=== PATIENT | male | born 1955 | race Caucasian/White ===

== ENCOUNTER → 2016-10-05 | Outpatient (CLI) | payer BC, OTHER ==
--- NOTE | 2016-10-08 07:07 | SLEEPCENT ---
DATE OF PROCEDURE: 10/05/2016 ORDERED BY: Jennie Barahona Nocturnal polysomnography was performed for evaluation of sleep apnea syndrome symptoms in this patient with a history of excessive somnolence and comorbidity of hypertension. 7 hours and 38 minutes of data were reviewed. There were 279 minutes of sleep identified. Sleep latency was prolonged at 17 minutes. Rapid eye movement (REM) latency was prolonged at 114 minutes. Sleep architecture showed severe fragmentation until interventions were made. Overall sleep efficiency was 61%. The patient's electrocardiogram (EKG) showed a sinus rhythm with an average heart rate of 54 beats per minute. Electroencephalogram (EEG) showed reasonably normal waveforms for awake and sleep. There were 136 respiratory events identified of 10 seconds in duration or greater for an apnea-hypopnea index of 29.2. Having clearly established the presence of obstructive sleep apnea syndrome early in the study, testing was stopped shortly after midnight for the application of pressure therapy. The patient was fit with a ResMed Quattro full face mask of small size and 4 cm of water pressure were applied to the circuit and the lights were extinguished. Pressure titration proceeded over the remaining portion of the study to an optimal pressure of +8, with which the patient slept through REM without respiratory event or oxygen desaturation. Significant limb activity was appreciated early in the study; however, arousals from limb activity were significantly less late in the test. Limb movement arousal index was borderline at 6. IMPRESSION: Obstructive sleep apnea syndrome (G47.33), apnea-hypopnea index 29.2. RECOMMENDATION: Nightly use of pressure therapy at 8 cm of water.
== END ==
LOC: M SLEEP 19:26
PROVIDERS: ATTEND Nurse Practitioner Adult Health
DX: G47.30 Sleep apnea, unspecified (principal)

== ENCOUNTER → 2017-01-18 | Outpatient (REF) | payer OTHER, BC ==
[2017-01-18 13:52] LABS: BASO % 0.4 % (0.0-1.0); EOS # 0.3 K/mm3 (0.0-0.50); EOS % 5.3 % (0.0-3.0); LYMPH # 1.8 K/mm3 (1.5-4.5); LYMPH % 28.9 % (24.0-44.0); MEAN CORPUSCULAR HEMOGLOBIN 31.9 pg (27.0-33.0); MEAN CORPUSCULAR HGB CONC 33.9 g/dl (32.0-36.5); MEAN CORPUSCULAR VOLUME 94.3 fl (80.0-96.0); MONO # 0.5 K/mm3 (0.0-0.8); MONO % 8.5 % (0.0-5.0); NEUTROPHILS # 3.3 K/mm3 (1.8-7.7); NEUTROPHILS % 54.6 % (36.0-66.0); RED CELL DISTRIBUTION WIDTH 13.4 % (11.5-14.5); WHITE BLOOD COUNT 6.1 K/mm3 (4.0-10.0)
[2017-01-18 13:58] LABS: ALBUMIN 3.7 GM/DL (3.2-5.2); ALBUMIN/GLOBULIN RATIO 1.16 (1.00-1.93); ALKALINE PHOSPHATASE 49 U/L (45-117); ALT/SGPT 48 U/L (12-78); ANION GAP 7 MEQ/L (8-16); AST/SGOT 26 U/L (15-37); BILIRUBIN,TOTAL 0.9 MG/DL (0.2-1.0); BLOOD UREA NITROGEN 19 MG/DL (7-18); CALCIUM LEVEL 9.1 MG/DL (8.8-10.2); CARBON DIOXIDE LEVEL 27 MEQ/L (21-32); CHLORIDE LEVEL 105 MEQ/L (98-107); CHOLESTEROL LEVEL 187 MG/DL (<200); CREATININE FOR GFR 0.86 MG/DL (0.70-1.30); GLOMERULAR FILTRATION RATE > 60.0 (>49); GLUCOSE, FASTING 90 MG/DL (80-110); POTASSIUM SERUM 3.9 MEQ/L (3.5-5.1); SODIUM LEVEL 139 MEQ/L (136-145); TOTAL PROTEIN 6.9 GM/DL (6.4-8.2); TRIGLYCERIDES LEVEL 173 MG/DL (<150)
== END ==
LOC: M LABDRAW1 13:11
PROVIDERS: ATTEND Physician Assistant Medical
DX: I10 Essential (primary) hypertension (principal)

== ENCOUNTER → 2017-11-14 | Outpatient (CLI) | payer BC, OTHER ==
[2017-11-14 13:22] LABS: HEMATOCRIT 45.8 % (42.0-52.0); HEMOGLOBIN 15.5 g/dl (14.0-18.0); MEAN CORPUSCULAR HGB CONC 33.8 g/dl (32.0-36.5); MEAN CORPUSCULAR VOLUME 88.8 fl (80.0-96.0); PLATELET COUNT, AUTOMATED 292 10^3/uL (150-450); RED BLOOD COUNT 5.16 10^6/uL (4.30-6.10); RED CELL DISTRIBUTION WIDTH 13.8 % (11.5-14.5)
[2017-11-14 14:01] LABS: ALBUMIN 3.9 GM/DL (3.2-5.2); ALBUMIN/GLOBULIN RATIO 1.05 (1.00-1.93); ALKALINE PHOSPHATASE 52 U/L (45-117); ALT/SGPT 50 U/L (12-78); ANION GAP 8 MEQ/L (8-16); AST/SGOT 26 U/L (7-37); BILIRUBIN,TOTAL 0.8 MG/DL (0.2-1.0); BLOOD UREA NITROGEN 20 MG/DL (7-18); CALCIUM LEVEL 9.5 MG/DL (8.8-10.2); CARBON DIOXIDE LEVEL 27 MEQ/L (21-32); CHLORIDE LEVEL 105 MEQ/L (98-107); CHOLESTEROL LEVEL 184 MG/DL (<200); CHOLESTEROL RISK RATIO 4.487 (<5); CREATININE FOR GFR 0.91 MG/DL (0.70-1.30); GLOMERULAR FILTRATION RATE > 60.0 (>49); GLUCOSE, FASTING 84 MG/DL (70-100); HDL CHOLESTEROL 41 MG/DL (>40); LDL CHOLESTEROL 116.6 MG/DL (<100); NON-HDL-C 143 MG/DL; POTASSIUM SERUM 4.1 MEQ/L (3.5-5.1); PROSTATIC SPECIFIC AG MONITOR < 0.01 NG/ML (< 4.0); SODIUM LEVEL 140 MEQ/L (136-145); TOTAL PROTEIN 7.6 GM/DL (6.4-8.2); TRIGLYCERIDES LEVEL 132 MG/DL (<150)
[2017-11-14 14:16] LABS: ESTIMATED AVERAGE GLUCOSE 137 MG/DL (60-110); HEMOGLOBIN A1c 6.4 %
[2017-11-14 14:48] LABS: TESTOSTERONE 358 NG/DL (241-827)
== END ==
LOC: M LAB 12:11
DX: R91.8 Other nonspecific abnormal finding of lung field (principal); I10 Essential (primary) hypertension; E03.9 Hypothyroidism, unspecified
CPT/HCPCS: 71046

== ENCOUNTER → 2020-11-11 | Outpatient (CLI) | payer BC, OTHER ==
[2020-11-11 12:03] LABS: HEMATOCRIT 48.5 % (42.0-52.0); HEMOGLOBIN 16.1 g/dl (13.5-17.5); MEAN CORPUSCULAR HEMOGLOBIN 30.3 pg (27.0-33.0); MEAN CORPUSCULAR HGB CONC 33.2 g/dl (32.0-36.5); MEAN CORPUSCULAR VOLUME 91.2 fl (80.0-96.0); PLATELET COUNT, AUTOMATED 287 10^3/uL (150-450); RED BLOOD COUNT 5.32 10^6/uL (4.30-6.10); WHITE BLOOD COUNT 4.9 10^3/uL (4.0-10.0)
[2020-11-11 12:32] LABS: HEMOGLOBIN A1c 5.8 %
[2020-11-11 12:49] LABS: ALBUMIN 3.9 GM/DL (3.2-5.2); ALT/SGPT 55 U/L (12-78); BILIRUBIN,TOTAL 0.9 MG/DL (0.2-1.0); BLOOD UREA NITROGEN 22 MG/DL (7-18); CALCIUM LEVEL 10.2 MG/DL (8.8-10.2); CARBON DIOXIDE LEVEL 29 MEQ/L (21-32); CHLORIDE LEVEL 106 MEQ/L (98-107); CHOLESTEROL LEVEL 190 MG/DL (<200); CHOLESTEROL RISK RATIO 4.523 (<5); CREATININE FOR GFR 0.93 MG/DL (0.70-1.30); GLOMERULAR FILTRATION RATE > 60.0 (>49); GLUCOSE, FASTING 106 MG/DL (70-100); HDL CHOLESTEROL 42 MG/DL (>40); LDL CHOLESTEROL 120 MG/DL (<100); NON-HDL-C 148 MG/DL; POTASSIUM SERUM 3.9 MEQ/L (3.5-5.1); SODIUM LEVEL 138 MEQ/L (136-145); TESTOSTERONE 491 NG/DL (241-827); TOTAL 25(OH) VITAMIN D 37.4 NG/ML (30.0-100.0); TOTAL PROTEIN 7.7 GM/DL (6.4-8.2); TRIGLYCERIDES LEVEL 140 MG/DL (<150)
== END ==
LOC: M WUC 09:20
PROVIDERS: ATTEND Family Medicine
DX: E03.9 Hypothyroidism, unspecified (principal); R53.83 Other fatigue; I10 Essential (primary) hypertension
CPT/HCPCS: 36415; 80053; 80061; 82306; 83036; 84403; 84443; 85027; G0103

== ENCOUNTER → 2021-08-17 | Outpatient (CLI) | payer MEDICARE, BC, OTHER ==
[~2021-08-17] MED LIST: ASPI81TA26 PO; ATEN50TA2 PO; CHLO125TA PO; THERTAB52 PO
== END ==
LOC: M LABSMTC 10:04
PROVIDERS: ATTEND Anesthesiology
DX: Z01.812 Encounter for preprocedural laboratory examination (principal); Z20.822 Contact with and (suspected) exposure to COVID-19

== ENCOUNTER 2021-08-21 08:56 | Day surgery (SDC) | payer MEDICARE, BC, OTHER ==
[~2021-08-21] VITALS: Ht 172.7 cm; Wt 96.2 kg
[~2021-08-21 08:56] MED LIST changes: +NS 1,000 ML IV ONE
--- OUTSIDE RECORDS SUMMARY | 2021-08-21 09:02 | CCD | Continuity of Care Document ---
Author Author Erik SAPP Organization Unknown Address [address] [place] [id number] Phone [phone] Care Team Providers Care Ticket Attendant Name Role Phone Juan Manuel Begum M.D. AUTM [phone] Problems Active Problems Provider Date Screening for malignant neoplasm of colon Nicolás zaragoza M.D. Onset: 06/25/2021 Social History Type Date Description Comments Sex Unknown ETOH Use Denies alcohol use Tobacco Use Start: Unknown Patient has never smoked Allergies and adverse reactions Description No Known Drug Allergies Medications Active Medications SIG Qnty Indications Ordering Provide r Date Suprep Bowel Prep Kit 17.5-3.13-1.6GM/177ML Solution use as directed 354ml Nicolás Sapp M.D. 06/25/2021 Atenolol 50mg Tablets Take One Tablet By Mouth Every Day Unknown Chlorthalidone 25mg Tablets Take One Half Tablet By Mouth Once Daily Unknown Aspirin Adult Low Dose 81mg Tablets DR Unknown Immunizations Description No Information Available Vital Signs Date Vital Result Comment 06/25/2021 10:54am Height 68 inches 5'8" Weight 211.00 lb BP Systolic 130 mmHg BP Diastolic 81 mmHg Heart Rate 65 /min BMI (Body Mass Index) 32.1 kg/m2 Weight 95.710 kg Body Temperature 97.2 F Results Description No Information Available Procedures Date Code Description Status 06/25/2021 25590 Office/Outpatient New Low MDM 30 -44 Minutes Completed Medical Devices Description No Information Available Encounters Type Date Location Provider Dx Diagnosis Office Visit 06/25/2021 10:00a Main Office Nicolás Sapp M.D. Z 86.010 Personal history of colonic polyps Assessments Date Code Description Provider 06/25/2021 Z86.010 History of adenomatous polyp of colon Nicolás Sapp M.D. Plan of Treatment Future Appointment(s):* 08/10/2021 8:30 am - [facility] at Main Office * 08/21/2021 11:00 am - Nicolás Sapp M.D. at Main Office 06/25/2021 - Nicolás Sapp M.D.* Z86.010 History of adenomatous polyp of colon* Comments:* 65 yo wm who presents for a colonoscopy due to a h/o colonic polyps. Last scope was in 2015. No c/o abdominal pain, weight loss, change in bowel habits, or rectal bleeding. No family h/o colon cancer. No h/o chest pain, or sob.Plan:1.Schedule patient for Colonoscopy. 2. Informed consent given.3. Advised to stop asa, plavix,and anticoagulation 3 to 7 days prior to the procedures. Functional Status Description No Information Available Mental Status Description No Information Available Referrals Description No Information Available
--- OUTSIDE RECORDS SUMMARY | 2021-08-21 09:02 | CCD ---
Author Author [facility] Organization [facility] Address Unknown Phone Unavailable Care Team Providers Care Aircraft Manager Name Role Phone Moctezuma, Janet ASSEMBLY LINE SUPERVISOR Unavailable Unavailable Moctezuma, Janet ASSEMBLY LINE SUPERVISOR Unavailable Unavailable Moctezuma, Janet ASSEMBLY LINE SUPERVISOR Unavailable Unavailable Moctezuma, Janet ASSEMBLY LINE SUPERVISOR Unavailable Unavailable Moctezuma, Janet ASSEMBLY LINE SUPERVISOR Unavailable Unavailable Moctezuma, Janet ASSEMBLY LINE SUPERVISOR Unavailable Unavailable Moctezuma, Janet ASSEMBLY LINE SUPERVISOR Unavailable Unavailable Moctezuma, Janet ASSEMBLY LINE SUPERVISOR Unavailable Unavailable Moctezuma, Janet ASSEMBLY LINE SUPERVISOR Unavailable Unavailable Moctezuma, Janet ASSEMBLY LINE SUPERVISOR Unavailable Unavailable Moctezuma, Janet ASSEMBLY LINE SUPERVISOR Unavailable Unavailable Moctezuma, Janet ASSEMBLY LINE SUPERVISOR Unavailable Unavailable Moctezuma, Janet ASSEMBLY LINE SUPERVISOR Unavailable Unavailable Jayme Sapp MD Unavailable Unavailable Jayme Sapp MD Unavailable Unavailable Jayme Sapp MD Unavailable Unavailable Jayme Sapp MD Unavailable Unavailable Jayme Sapp MD Unavailable Unavailable Jayme Sapp MD Unavailable Unavailable Jayme Sapp MD Unavailable Unavailable Jayme Sapp MD Unavailable Unavailable Jayme Sapp MD Unavailable Unavailable Jayme Sapp MD Unavailable Unavailable Jayme Sapp MD Unavailable Unavailable Jayme Sapp MD Unavailable Unavailable Jayme Sapp MD Unavailable Unavailable Sekou, S Nicolás ADAN Unavailable Unavailable Sekou, S Nicolás MD Unavailable Unavailable Sekou, S Nicolás MD Unavailable Unavailable Sekou, S Nicolás MD Unavailable Unavailable Sekou, S Nicolás MD Unavailable Unavailable Sekou, S Nicolás ADAN Unavailable Unavailable Sekou, S Nicolás ADAN Unavailable Unavailable Sekou, S Nicolás MD Unavailable Unavailable Sekou, S Nicolás MD Unavailable Unavailable Sekou, S Nicolás MD Unavailable Unavailable Sekou, S Nicolás MD Unavailable Unavailable Sekou, S Nicolás MD Unavailable Unavailable Sekou, S Nicolás MD Unavailable Unavailable Sekou, S Nicolás ADAN Unavailable Unavailable Sekou, S Nicolás MD Unavailable Unavailable Sekou, S Nicolás MD Unavailable Unavailable Sekou, S Nicolás MD Unavailable Unavailable Sekou, S Nicolás MD Unavailable Unavailable Sekou, S Nicolás MD Unavailable Unavailable Sekou, S Nicolás ADAN Unavailable Unavailable Sekou, S Nicolás ADAN Unavailable Unavailable Sekou, S Nicolás ADAN Unavailable Unavailable Sekou, S Nicolás ADAN Unavailable Unavailable Sekou, S Nicolás ADAN Unavailable Unavailable Sekou, S Nicolás ADAN Unavailable Unavailable Sekou, S Nicolás ADAN Unavailable Unavailable Sekou, S Nicolás ADAN Unavailable Unavailable Sekou, S Nicolás ADAN Unavailable Unavailable Sekou, S Nicolás ADAN Unavailable Unavailable Sekou, S Nicolás ADAN Unavailable Unavailable Sekou, S Nicolás ADAN Unavailable Unavailable Sekou, S Nicolás ADAN Unavailable Unavailable Sekou, S Nicolás ADAN Unavailable Unavailable Sekou, S Nicolás ADAN Unavailable Unavailable Sekou, S iNcolás ADAN Unavailable Unavailable Sekou, S Nicolás ADAN Unavailable Unavailable Sekou, S Nicolás ADAN Unavailable Unavailable Sekou, S Nicolás ADAN Unavailable Unavailable LETTIERE, A LASHAWN PA Unavailable Unavailable LETTIERE, A LASHAWN PA Unavailable Unavailable LETTIERE, A LASHAWN PA Unavailable Unavailable LETTIERE, A LASHAWN PA Unavailable Unavailable LETTIERE, A LASHAWN PA Unavailable Unavailable LETTIERE, A LASHAWN PA Unavailable Unavailable LETTIERE, A LASHAWN PA Unavailable Unavailable LETTIERE, A LASHAWN PA Unavailable Unavailable LETTIERE, A LASHAWN PA Unavailable Unavailable LETTIERE, A LASHAWN PA Unavailable Unavailable LETTIERE, A LASHAWN PA Unavailable Unavailable LETTIERE, A LASHAWN PA Unavailable Unavailable LETTIERE, A LASHAWN PA Unavailable Unavailable LETTIERE, A LASHAWN PA Unavailable Unavailable LETTIERE, A LASHAWN PA Unavailable Unavailable LETTIERE, A LASHAWN PA Unavailable Unavailable LETTIERE, A LASHAWN PA Unavailable Unavailable LETTIERE, A LASHAWN PA Unavailable Unavailable LETTIERE, A LASHAWN PA Unavailable Unavailable LETTIERE, A LASHAWN PA Unavailable Unavailable LETTIERE, A LASHAWN PA Unavailable Unavailable LETTIERE, A LASHAWN PA Unavailable Unavailable LETTIERE, A LASHAWN PA Unavailable Unavailable LETTIERE, A LASHAWN PA Unavailable Unavailable LETTIERE, A LASHAWN PA Unavailable Unavailable LETTIERE, A LASHAWN PA Unavailable Unavailable LETTIERE, A LASHAWN PA Unavailable Unavailable LETTIERE, A LASHAWN PA Unavailable Unavailable LETTIERE, A LASHAWN PA Unavailable Unavailable LETTIERE, A LASHAWN PA Unavailable Unavailable LETTIERE, A LASHAWN PA Unavailable Unavailable JOSIAS, TRINITY PA Unavailable Unavailable JOSIAS, TRINITY PA Unavailable Unavailable OJSIAS, TRINITY PA Unavailable Unavailable JOSIAS, TRINITY PA Unavailable Unavailable JOSIAS, TRINITY PA Unavailable Unavailable JOSIAS, TRINITY PA Unavailable Unavailable JOSIAS, TRINITY PA Unavailable Unavailable JOSIAS, TRINITY PA Unavailable Unavailable JOSIAS, TRINITY PA Unavailable Unavailable JOSIAS, TRINITY PA Unavailable Unavailable JOSIAS, TRINITY PA Unavailable Unavailable JOSIAS, TRINITY PA Unavailable Unavailable JOSIAS, TRINITY PA Unavailable Unavailable JOSIAS, TRINITY PA Unavailable Unavailable JOSIAS, TRINITY PA Unavailable Unavailable JOSIAS, TRINITY PA Unavailable Unavailable JOSIAS, TRINITY PA Unavailable Unavailable JOSIAS, TRINITY PA Unavailable Unavailable JOSIAS, TRINITY PA Unavailable Unavailable JOSIAS, TRINITY PA Unavailable Unavailable JOSIAS, TRINITY PA Unavailable Unavailable JOSIAS, TRINITY PA Unavailable Unavailable JOSIAS, TRINITY PA Unavailable Unavailable JOSIAS, TRINITY PA Unavailable Unavailable JOSIAS, TRINITY PA Unavailable Unavailable JOSIAS, TRINITY PA Unavailable Unavailable JOSIAS, TRINITY PA Unavailable Unavailable JOSIAS, TRINITY PA Unavailable Unavailable JOSIAS, TRINITY PA Unavailable Unavailable JOSIAS, TRINITY PA Unavailable Unavailable JOSIAS, TRINITY PA Unavailable Unavailable JOSIAS, TRINITY PA Unavailable Unavailable JOSIAS, TRINITY PA Unavailable Unavailable JOSIAS, TRINITY PA Unavailable Unavailable JOSIAS, TRINITY PA Unavailable Unavailable JOSIAS, TRINITY PA Unavailable Unavailable Re-disclosure Warning The records that you are about to access may contain information from federally-assisted alcohol or drug abuse programs. If such information is present, then the following federally mandated warning applies: This information has been disclosed to you from records protected by federal confidentiality rules (42 CFR part 2). The federal rules prohibit you from making any further disclosure of this information unless further disclosure is expressly permitted by the written consent of the person to whom it pertains or as otherwise permitted by 42 CFR part 2. A general authorization for the release of medical or other information is NOT sufficient for this purpose. The Federal rules restrict any use of the information to criminally investigate or prosecute any alcohol or drug abuse patient.The records that you are about to access may contain highly sensitive health information, the redisclosure of which is protected by Article 27-F of the [facility] Public Health law. If you continue you may have access to information: Regarding HIV / AIDS; Provided by facilities licensed or operated by the [facility] Office of Mental Health; or Provided by the [facility] Office for People With Developmental Disabilities. If such information is present, then the following [facility] mandated warning applies: This information has been disclosed to you from confidential records which are protected by state law. State law prohibits you from making any further disclosure of this information without the specific written consent of the person to whom it pertains, or as otherwise permitted by law. Any unauthorized further disclosure in violation of state law may result in a fine or senior living sentence or both. A general authorization for the release of medical or other information is NOT sufficient authorization for further disc losure. Family History Family Member Name Family Member Gender Family Member Status Date o f Status Description Data Source(s) Unknown Unknown Problem [facility] ([facility]) Unknown Female Problem [facility] ([facility] ) Unknown Female Problem [facility] ([facility] Encounters Encounter Providers Location Date Indications Data Source(s ) Outpatient Attender: Nicolás Sapp MD Main Office 06/25/2021 10:00:00 AM EDT [facility] ([facility]) Outpatient Attender: LASHAWN sotoy 04/28/2021 12:30:00 PM EDT [facility] ([facility]) Outpatient Attender: TRINITY Moodya ry 10/23/2020 10:50:00 AM EST MED[facility] ([facility]) Outpatient Attender: Janet woodward 08/16/2020 09:00:00 AM EST [facility] ([facility]) Immunizations Vaccine Date Status Description Data Source(s) COVID-19 VACCINE Pfizer 07/17/2021 12:00:00 AM EDT completed [facility] Vaccine Series Complete: YESThis Data wa s Submitted to [facility] Via [email or web address]. COVID-19 VACCINE Pfizer 12/03/2020 12:00:00 AM EDT completed [facility] Vaccine Series Complete: YESThis Data wa s Submitted to [facility] Via [email or web address]. COVID-19 VACCINE Pfizer 11/12/2020 12:00:00 AM EST completed [facility] Vaccine Series Complete: NOThis Data was Submitted to [facility] Via [email or web address]. Medications Medication Brand Name Start Date Product Form Dose Route Admi nistrative Instructions Pharmacy Instructions Status Indications Reaction Description Data Source(s) 50 mg 07/30/2021 12:00:00 AM EST tablet 90 TAKE ONE TABLET BY MOUTH EVERY DAY TAKE ONE TABLET BY MOUTH EVERY DAY SOLD: 08/03/2021 [facility] Chlorthalidone 25 MG Oral Tablet CHLORTHALIDONE 07/30/2021 12:0 0:00 AM EST tablet 45 TAKE ONE-HALF TABLET BY MOUTH EV LAURA DAY TAKE ONE-HALF TABLET BY MOUTH EVERY DAY SOLD: 08/03/2021 [facility] SUPREP BOWEL PREP KIT 17.5-3.13-1.6 gram SODIUM, POTASSIUM,M AG SULFATES 06/26/2021 12:00:00 AM EDT recon soln 354 USE DIRECTED USE DIRECTED SOLD: 06/30/2021 [facility] Suprep Bowel Prep Kit Suprep Bowel Prep Kit 06/25/2021 12:00:00 AM EDT active [facility] ([facility]) 25 mg 04/29/2021 12:00:00 AM EDT tablet 45 TAKE ONE-HALF TABLET BY MOUTH ONCE DAILY TAKE ONE-HALF TABLET BY MOUTH ONCE DAILY SOLD: 05/04/2021 [facility] 50 mg 04/29/2021 12:00:00 AM EDT tablet 90 TAKE ONE TABLET BY MOUTH EVERY DAY TAKE ONE TABLET BY MOUTH EVERY DAY SOLD: 05/04/2021 [facility] 0.12 % 03/12/2021 12:00:00 AM EDT mouthwash 473 RINSE WITH 1/2 OZ (15MLS) BY MOUTH TWO TIMES A DAY FOR 30 SECONDS AND EXPECTORATE AVOID RINSING OR EATING FOR 30 MINUTES FOLLOWING TREATMENT RINSE WITH 1/2 OZ (15MLS) BY MOUTH TWO T IMES A DAY FOR 30 SECONDS AND EXPECTORATE AVOID RINSING OR EATING FOR 30 MINUTES FOLLOWING TREATMENT SOLD: 03/12/2021 [facility] 25 mg 01/27/2021 12:00:00 AM EDT tablet 45 TAKE ONE-HALF TABLET BY MOUTH EVERY DAY TAKE ONE-HALF TABLET BY MOUTH EVERY DAY SOLD: 01/28/2021 [facility] 50 mg 01/27/2021 12:00:00 AM EDT tablet 90 TAKE ONE TABLET BY MOUTH EVERY DAY TAKE ONE TABLET BY MOUTH EVERY DAY SOLD: 01/28/2021 [facility] 50 mg 10/30/2020 12:00:00 AM EST tablet 90 TAKE ONE TABLET BY MOUTH EVERY DAY TAKE ONE TABLET BY MOUTH EVERY DAY SOLD: 11/01/2020 [facility] 25 mg 10/30/2020 12:00:00 AM EST tablet 45 TAKE 1/2 TABLET BY MOUTH ONCE DAILY TAKE 1/2 TABLET BY MOUTH ONCE DAILY SOLD: 11/01/2020 [facility] 25 mg 07/22/2020 12:00:00 AM EST tablet 45 TAKE 1/2 TABLET BY MOUTH ONCE DAILY TAKE 1/2 TABLET BY MOUTH ONCE DAILY SOLD: 07/24/2020 [facility] Atenolol 50 MG Oral Tablet ATENOLOL 07/22/2020 12:00:00 AM EST tablet 90 TAKE ONE TABLET BY MOUTH EVERY DAY TAKE ONE TABLET BY MOUTH EVERY DAY SOLD: 07/24/2020 [facility] Insurance Providers Payer name Policy type / Coverage type Policy ID Covered democrat ID Covered democrat's relationship to nelson Policy Nelson Plan Information EMPIRE PLAN [facility] U [id number] Self [id number] [place] Plan F [id number] SELF [id number] BCBS EMPIRE JAYMIE DIV [id number] SP [id number] [facility] [id number] SP [id number] [place] Plan F [id number] [id number] BCBS EMPIRE JAYMIE DIV [id number] SP [id number] [facility] Butler Commercial [id number] Self [id number] Emp/[employer] Commercial [id number] Self [id number] Emp/[employer] Commercial [id number] Self [facility] Butler Health Maintenance Organization (HMO) [id number] Self BCBS EMPIRE JAYMIE DIV [id number] SP [id number] [employer] [id number] SP [id number] Emp/[employer] Commercial [id number] Self [facility] EMPIRE PLAN O [id number] S [id number] EMPIR HEALTH CHOICE O [id number] S [id number] MEDICARE [id number] SP [id number] [facility] Butler Commercial [id number] Self [id number] Medicare Natl Gov't Servi Medicare Primary [id number] Self [id number] [facility] Butler Commercial [id number] Self [id number] [facility] Health Maintenance Organization (HMO) [id number] Self [id number] [facility] Butler Commercial [id number] Self [id number] Problems, Conditions, and Diagnoses Code Display Name Description Problem Type Effective Dates Data Source(s) 113746244 Screening for malignant neoplasm of colo n Screening for malignant neoplasm of colon Problem 06/25/2021 12:00:00 AM EDT MED[facility] ([facility]) Surgeries/Procedures Procedure Description Date Indications Data Source(s) OFFICE OUTPATIENT NEW 30 MINUTES 06/25/2021 12:00:00 A M EDT MEDENT ([facility]) Remove Impact Cerumen Irrigati 04/28/2021 12:00:00 AM EDT MEDENT ([facility]) OFFICE OUTPATIENT VISIT 15 MINUTES 04/28/2021 12:00:00 AM EDT MED[facility] ([facility]) Remove Impact Cerumen Irrigati 10/23/2020 12:00:00 AM EST MED[facility] ([facility]) Remove Impact Cerumen Irrigati 08/16/2020 12:00:00 AM EST MEDENT ([facility]) Results ID Date Data Source [id number] 08/04/2021 10:00:00 AM EST [place] Name Value Range Interpretation Code Description Data Katia rce(s) Supporting Document(s) SARS-COV 2 PCR (NASAL SWAB) NEGATIVE [place] This lab was ordered by [facility] and reported by [facility]. ID Date Data Source [id number] 08/04/2021 12:00:00 AM EST [place] Name Value Range Interpretation Code Description Data Katia rce(s) Supporting Document(s) SARS-CoV-2 (COVID-19) RNA [Presence] in Respiratory specimen by JUNIE with probe detection Not detected [place] This lab was ordered by [facility] and r eported by [facility]. ID Date Data Source [id number] 07/21/2021 12:00:00 AM EST [place] Name Value Range Interpretation Code Description Data Katia rce(s) Supporting Document(s) SARS-COV 2 PCR (NASAL SWAB) NEGATIVE [place] This lab was ordered by [facility] and reported by [facility]. ID Date Data Source [id number] 07/21/2021 12:00:00 AM EST [place] Name Value Range Interpretation Code Description Data Katia rce(s) Supporting Document(s) SARS-CoV-2 (COVID-19) RNA [Presence] in Respiratory specimen by JUNIE with probe detection Not detected [place] This lab was ordered by [facility] and r eported by [facility]. Procedure Social History Code Duration Value Status Description Data Source(s ) Smoking 10/23/2020 12:00:00 AM EST Patient has never smoked co mpleted Patient has never smoked [facility] ([facility]) Vital Signs ID Date Data Source UNK Name Value Range Interpretation Code Description Data Source(s) Body height 68 [in_i] 68 [in_i] MEDENT ([facility]) 5'8" Body weight 211.00 [lb_av] 211.00 [lb_av] MEDEN T ([facility]) Systolic blood pressure 130 mm[Hg] 130 mm[Hg] M EDENT ([facility]) Diastolic blood pressure 81 mm[Hg] 81 mm[Hg] [facility] ([facility]) Heart rate 65 /min 65 /min [facility] Body mass index (BMI) [Ratio] 32.1 kg/m2 32.1 k g/m2 [facility] ([facility]) Body weight 95.710 kg 95.710 kg MED[facility] ([facility]) Body temperature 97.2 [degF] 97.2 [degF] [facility] ([facility]) Systolic blood pressure 145 mm[Hg] 145 mm[Hg] M EDENT ([facility], [facility]) Diastolic blood pressure 88 mm[Hg] 88 mm[Hg] MED[facility] ([facility], [facility]) Heart rate 59 /min 59 /min MED[facility] ([facility], [facility]) Respiratory rate 14 /min 14 /min MED[facility] ( [facility], [facility]) Oxygen saturation in Arterial blood by Pulse oximetry 95 % 95 % MED[facility] ([facility], [facility]) Body temperature 96.8 [degF] 96.8 [degF] MED[facility] ([facility], [facility]) Body weight 205.00 [lb_av] 205.00 [lb_av] MEDEN T ([facility], [facility]) Body height 68 [in_i] 68 [in_i] MEDENT ([facility]) 5'8" Body mass index (BMI) [Ratio] 31.2 kg/m2 31.2 k g/m2 MED[facility] ([facility], [facility]) Diastolic blood pressure 64 mm[Hg] 64 mm[Hg] MED[facility] ([facility], [facility]) Systolic blood pressure 124 mm[Hg] 124 mm[Hg] M EDENT ([facility], [facility]) Heart rate 60 /min 60 /min [facility]) Respiratory rate 12 /min 12 /min MEDENT ( [facility], [facility]) Oxygen saturation in Arterial blood by Pulse oximetry 97 % 97 % MEDENT ([facility], [facility]) Body temperature 96.8 [degF] 96.8 [degF] MEDENT ([facility], [facility]) Body weight 205.00 [lb_av] 205.00 [lb_av] MEDEN T ([facility], [facility]) Body height 68 [in_i] 68 [in_i] MEDENT ([facility], [facility]) 5'8" Body mass index (BMI) [Ratio] 31.2 kg/m2 31.2 k g/m2 MED[facility] ([facility], [facility]) Body height 68 [in_i] 68 [in_i] MEDENT ([facility], [facility]) 5'8" Body mass index (BMI) [Ratio] 31.2 kg/m2 31.2 k g/m2 MEDENT ([facility], [facility]) Systolic blood pressure 108 mm[Hg] 108 mm[Hg] M EDENT ([facility], [facility]) Diastolic blood pressure 74 mm[Hg] 74 mm[Hg] MEDENT ([facility], [facility]) Heart rate 61 /min 61 /min [facility] ([facility]) Respiratory rate 16 /min 16 /min MEDENT ( [facility], [facility]) Oxygen saturation in Arterial blood by Pulse oximetry 95 % 95 % MEDENT ([facility], [facility]) Body temperature 96.6 [degF] 96.6 [degF] MEDENT ([facility], [facility]) Body weight 205.00 [lb_av] 205.00 [lb_av] MEDEN T ([facility], [facility])
--- OUTSIDE RECORDS SUMMARY | 2021-08-21 09:02 | CCD | Continuity of Care Document ---
Author Author Erik SAPP Organization Unknown Address [address] [place] [id number] Phone [phone] Care Team Providers Care Credit Union Manager Name Role Phone Juan Manuel Begum M.D. AUTM [phone] Problems Active Problems Provider Date Screening for [...] Available Procedures Date Code Description Status 06/25/2021 09013 Office/Outpatient New Low MDM 30 -44 Minutes Completed Medical Devices Description No Information Available Encounters Type Date Location Provider Dx Diagnosis Office Visit 06/25/2021 10:00a Main Office Nicolás Sapp M.D. Z 86.010 Personal history of colonic polyps Assessments Date Code Description Provider 06/25/2021 Z86.010 History of adenomatous polyp of colon Nicolás Spap M.D. Plan of Treatment Future Appointment(s):* 08/10/2021 [...]
[2021-08-21] MEDS ORDERED: propofoL 200 MG/20 ML VIAL As Ordered ONE ×2 (09:14→10:26)
[2021-08-21] MEDS ORDERED: LIDOCAINE 2% 100MG/5ML SDV (FOR ANES.) As Ordered ONE (09:14)
--- NOTE | 2021-08-21 10:37 | ROOR ---
Patient Name: Erik Jerez Procedure Date: 08/21/2021 10:07 AM Date of : 1955 Age: 66 Room: [facility] Gender: Male Note Status: Finalized Procedure: Total Colonoscopy to Cecum + Cold Snare Polypectomy + Hemoclips + ileoscopy Indications: High risk colon cancer surveillance: Personal history of colonic polyps, Last colonoscopy: 2015 Providers: Nicolás Sapp MD Referring MD: JUAN CARLOS RICE MD Requesting Provider: Medicines: Monitored Anesthesia Care Complications: No immediate complications. Procedure: Pre-Anesthesia Assessment: - The heart rate, respiratory rate, oxygen saturations, blood pressure, adequacy of pulmonary ventilation, and response to care were monitored throughout the procedure. The Colonoscope was introduced through the anus and advanced to the cecum, identified by appendiceal orifice and ileocecal valve. The colonoscopy was performed without difficulty. The patient tolerated the procedure well. The quality of the bowel preparation was excellent. Findings: The perianal and digital rectal examinations were normal. Non-bleeding internal hemorrhoids were found during retroflexion. The hemorrhoids were small and Grade I (internal hemorrhoids that do not prolapse). Multiple small and large-mouthed diverticula were found in the recto-sigmoid colon, sigmoid colon and descending colon. A small polyp was found in the cecum. The polyp was sessile. The polyp was removed with a cold snare. Resection and retrieval were complete. A small polyp was found in the transverse colon. The polyp was sessile. The polyp was removed with a cold snare. Resection and retrieval were complete. A small polyp was found at 40 cm proximal to the anus. The polyp was sessile. The polyp was removed with a cold snare. Resection and retrieval were complete. To prevent bleeding after the polypectomy, one hemostatic clip was successfully placed. There was no bleeding at the end of the procedure. The exam was otherwise without abnormality on direct and retroflexion views. The terminal ileum appeared normal. Impression: - Non-bleeding internal hemorrhoids. - Diverticulosis in the recto-sigmoid colon, in the sigmoid colon and in the descending colon. - One small polyp in the cecum, removed with a cold snare. Resected and retrieved. - One small polyp in the transverse colon, removed with a cold snare. Resected and retrieved. - One small polyp at 40 cm proximal to the anus, removed with a cold snare. Resected and retrieved. Clip was placed. - The examination was otherwise normal on direct and retroflexion views. - The examined portion of the ileum was normal. - The exam was otherwise normal to the cecum. Recommendation: - Patient has a contact number available for emergencies. The signs and symptoms of potential delayed complications were discussed with the patient. Return to normal activities tomorrow. Written discharge instructions were provided to the patient. - High fiber diet. - Discharge patient to home. - Continue present medications. - Await pathology results. - Telephone GI clinic for pathology results in 1 week. - Repeat colonoscopy in 5 years for surveillance based on pathology results. - Return to referring physician. - The findings and recommendations were discussed with the patient. Procedure Code(s): --- Professional --- 61420, Colonoscopy, flexible; with removal of tumor(s), polyp(s), or other lesion(s) by snare technique Diagnosis Code(s): --- Professional --- Z86.010, Personal history of colonic polyps K64.0, First degree hemorrhoids K63.5, Polyp of colon K57.30, Diverticulosis of large intestine without perforation or abscess without bleeding CPT copyright 2019 [employer]. All rights reserved. The codes documented in this report are preliminary and upon personnel assistant review may be revised to meet current compliance requirements. Nicolás Sapp MD Nicolás Sapp MD 08/21/2021 10:36:52 AM Electronically signed by Nicolás Sapp MD Number of Addenda: 0 Note Initiated On: 08/21/2021 10:07 AM Estimated Blood Loss: Estimated blood loss: none.
[2021-08-21 10:50] VITALS: BP 119/79
== END 2021-08-21 11:00 | disposition home or self-care (01) ==
LOC: M OPP 08:56
PROVIDERS: ATTEND Internal Medicine Gastroenterology
DX: Z12.11 Encounter for screening for malignant neoplasm of colon (principal); Z86.010 Personal history of colon polyps; D12.6 Benign neoplasm of colon, unspecified; K57.30 Diverticulosis of large intestine without perforation or abscess without bleeding; K64.0 First degree hemorrhoids; Z79.82 Long term (current) use of aspirin; Z79.899 Other long term (current) drug therapy

== ENCOUNTER → 2021-12-02 | Outpatient (CLI) | payer MEDICARE, OTHER, BC ==
[~2021-12-02] MED LIST changes: -NS 1,000 ML IV ONE
[2021-12-02 12:53] LABS: HEMATOCRIT 47.2 % (42.0-52.0); HEMOGLOBIN 15.7 g/dl (13.5-17.5); MEAN CORPUSCULAR HGB CONC 33.3 g/dl (32.0-36.5); MEAN CORPUSCULAR VOLUME 90.1 fl (80.0-96.0); PLATELET COUNT, AUTOMATED 319 10^3/uL (150-450); RED BLOOD COUNT 5.24 10^6/uL (4.30-6.10); WHITE BLOOD COUNT 5.1 10^3/uL (4.0-10.0)
[2021-12-02 13:15] LABS: HEMOGLOBIN A1c 6.1 %
[2021-12-02 13:24] LABS: ALT/SGPT 62 U/L (12-78); BILIRUBIN,TOTAL 1.1 MG/DL (0.2-1.0); BLOOD UREA NITROGEN 19 MG/DL (7-18); CALCIUM LEVEL 9.8 MG/DL (8.8-10.2); CARBON DIOXIDE LEVEL 31 MEQ/L (21-32); CHLORIDE LEVEL 107 MEQ/L (98-107); CHOLESTEROL LEVEL 186 MG/DL (<200); CHOLESTEROL RISK RATIO 4.536 (<5); CREATININE FOR GFR 0.82 MG/DL (0.70-1.30); GLOMERULAR FILTRATION RATE > 60.0 (>49); GLUCOSE, FASTING 93 MG/DL (70-100); HDL CHOLESTEROL 41 MG/DL (>40); LDL CHOLESTEROL 123 MG/DL (<100); NON-HDL-C 145 MG/DL; POTASSIUM SERUM 4.3 MEQ/L (3.5-5.1); PROSTATIC SPECIFIC AG MONITOR < 0.01 NG/ML (< 4.00); SODIUM LEVEL 140 MEQ/L (136-145); TOTAL PROTEIN 7.5 GM/DL (6.4-8.2); TRIGLYCERIDES LEVEL 112 MG/DL (<150)
[2021-12-02 13:27] LABS: TESTOSTERONE 379 NG/DL (241-827)
== END ==
LOC: M WUC 10:40
PROVIDERS: ATTEND Family Medicine
DX: I10 Essential (primary) hypertension (principal); R53.83 Other fatigue; E03.9 Hypothyroidism, unspecified

== ENCOUNTER → 2022-08-04 | Outpatient (CLI) | payer MEDICARE, OTHER, BC ==
[2022-08-04 14:47] LABS: HEMATOCRIT 46.6 % (42.0-52.0); HEMOGLOBIN 15.2 g/dl (13.5-17.5); MEAN CORPUSCULAR HEMOGLOBIN 30.2 pg (27.0-33.0); MEAN CORPUSCULAR HGB CONC 32.6 g/dl (32.0-36.5); MEAN CORPUSCULAR VOLUME 92.6 fl (80.0-96.0); PLATELET COUNT, AUTOMATED 271 10^3/uL (150-450); RED BLOOD COUNT 5.03 10^6/uL (4.30-6.10); WHITE BLOOD COUNT 6.2 10^3/uL (4.0-10.0)
[2022-08-04 17:57] LABS: ALBUMIN 3.8 G/DL (3.2-5.2); ALT/SGPT 79 U/L (7.0-40); BILIRUBIN,TOTAL 1.3 MG/DL (0.3-1.2); BLOOD UREA NITROGEN 22 MG/DL (9-23); CALCIUM LEVEL 9.5 MG/DL (8.3-10.6); CARBON DIOXIDE LEVEL 26 MMOL/L (20-31); CHLORIDE LEVEL 105 MMOL/L (98-107); CHOLESTEROL LEVEL 161 MG/DL (<200); CHOLESTEROL RISK RATIO 3.65 (<5); CREATININE FOR GFR 0.87 MG/DL (0.70-1.30); GLOMERULAR FILTRATION RATE > 60.0 (>49); GLUCOSE, FASTING 89 MG/DL (74-106); LDL CHOLESTEROL 98.8 MG/DL (<100); NON-HDL-C 117 MG/DL; POTASSIUM SERUM 4.3 MMOL/L (3.5-5.1); PROSTATIC SPECIFIC AG MONITOR 0.04 NG/ML (< 4.00); SODIUM LEVEL 141 MMOL/L (136-145); TESTOSTERONE 319 NG/DL (241-827); THYROID STIMULATING HORMONE 2.304 uIU/ML (0.55-4.78); TOTAL 25(OH) VITAMIN D 37.7 NG/ML (20.0-100.0); TOTAL PROTEIN 7.1 G/DL (5.7-8.2); TRIGLYCERIDES LEVEL 91 MG/DL (<150)
[2022-08-04 19:22] LABS: HEMOGLOBIN A1c 5.5 % (4.0-6.0)
== END ==
LOC: M PLALAB 11:56
PROVIDERS: ATTEND Family Medicine
DX: R53.83 Other fatigue (principal); I10 Essential (primary) hypertension; E03.9 Hypothyroidism, unspecified; Z79.899 Other long term (current) drug therapy; R97.20 Elevated prostate specific antigen [PSA]

== ENCOUNTER → 2023-05-04 | Outpatient (CLI) | payer MEDICARE, OTHER, BC ==
[2023-05-04 17:27] LABS: HEMATOCRIT 47.3 % (42.0-52.0); HEMOGLOBIN 15.4 g/dl (13.5-17.5); MEAN CORPUSCULAR HEMOGLOBIN 30.7 pg (27.0-33.0); MEAN CORPUSCULAR HGB CONC 32.6 g/dl (32.0-36.5); MEAN CORPUSCULAR VOLUME 94.2 fl (80.0-96.0); PLATELET COUNT, AUTOMATED 304 10^3/uL (150-450); RED BLOOD COUNT 5.02 10^6/uL (4.30-6.10); WHITE BLOOD COUNT 4.8 10^3/uL (4.0-10.0)
[2023-05-04 17:49] LABS: ALBUMIN 3.9 G/DL (3.2-5.2); ALKALINE PHOSPHATASE 52 U/L (46-116); ALT/SGPT 54 U/L (7.0-40); AST/SGOT 29 U/L (<34); BILIRUBIN,TOTAL 1.2 MG/DL (0.3-1.2); BLOOD UREA NITROGEN 21 MG/DL (9-23); CALCIUM LEVEL 9.9 MG/DL (8.3-10.6); CARBON DIOXIDE LEVEL 29 MMOL/L (20-31); CHLORIDE LEVEL 105 MMOL/L (98-107); CHOLESTEROL LEVEL 184 MG/DL (<200); CHOLESTEROL RISK RATIO 3.89 (<5); CREATININE FOR GFR 0.83 MG/DL (0.70-1.30); GLOMERULAR FILTRATION RATE > 60.0 (>49); GLUCOSE, FASTING 101 MG/DL (74-106); HDL CHOLESTEROL 47.3 MG/DL (>40); LDL CHOLESTEROL 114.5 MG/DL (<100); NON-HDL-C 136.7 MG/DL; PROSTATIC SPECIFIC AG MONITOR 0.04 NG/ML (< 4.00); SODIUM LEVEL 141 MMOL/L (136-145); TESTOSTERONE 475 NG/DL (241-827); TOTAL PROTEIN 7.2 G/DL (5.7-8.2); TRIGLYCERIDES LEVEL 111 MG/DL (<150)
[2023-05-04 17:58] LABS: HEMOGLOBIN A1c 5.6 % (4.0-6.0)
== END ==
LOC: M WUC 11:21
PROVIDERS: ATTEND Family Medicine
DX: I10 Essential (primary) hypertension (principal); R53.83 Other fatigue; E03.9 Hypothyroidism, unspecified; Z79.899 Other long term (current) drug therapy

== ENCOUNTER → 2024-02-08 | Outpatient (REF) | payer MEDICARE, OTHER, BC ==
[2024-02-08 17:22] LABS: ALBUMIN 3.8 G/DL (3.2-5.2); ALKALINE PHOSPHATASE 53 U/L (46-116); ALT/SGPT 61 U/L (7.0-40); AST/SGOT 34 U/L (<34); BILIRUBIN,TOTAL 1.2 MG/DL (0.3-1.2); BLOOD UREA NITROGEN 27 MG/DL (9-23); CALCIUM LEVEL 10.1 MG/DL (8.3-10.6); CARBON DIOXIDE LEVEL 28 MMOL/L (20-31); CHLORIDE LEVEL 107 MMOL/L (98-107); CHOLESTEROL LEVEL 170 MG/DL (<200); CHOLESTEROL RISK RATIO 3.91 (<5); CREATININE FOR GFR 0.84 MG/DL (0.70-1.30); GLOMERULAR FILTRATION RATE > 60.0 (>42); GLUCOSE, FASTING 98 MG/DL (74-106); HDL CHOLESTEROL 43.4 MG/DL (>40); NON-HDL-C 126.6 MG/DL; PSA SCREENING 0.04 NG/ML (< 4.00); SODIUM LEVEL 140 MMOL/L (136-145); TOTAL PROTEIN 7.1 G/DL (5.7-8.2); TRIGLYCERIDES LEVEL 98 MG/DL (<150)
[2024-02-08 17:23] LABS: HEMATOCRIT 46.2 % (42.0-52.0); HEMOGLOBIN 15.8 g/dl (13.5-17.5); MEAN CORPUSCULAR HEMOGLOBIN 31.3 pg (27.0-33.0); MEAN CORPUSCULAR HGB CONC 34.2 g/dl (32.0-36.5); MEAN CORPUSCULAR VOLUME 91.5 fl (80.0-96.0); PLATELET COUNT, AUTOMATED 277 10^3/uL (150-450); RED BLOOD COUNT 5.05 10^6/uL (4.30-6.10); WHITE BLOOD COUNT 6.1 10^3/uL (4.0-10.0)
[2024-02-08 17:25] LABS: THYROID STIMULATING HORMONE 3.518 uIU/ML (0.55-4.78)
[2024-02-08 17:26] LABS: TESTOSTERONE 463 NG/DL (241-827)
[2024-02-08 18:21] LABS: HEMOGLOBIN A1c 5.7 % (4.0-6.0)
== END ==
LOC: M LABDRAWC 16:44
PROVIDERS: ATTEND Family Medicine
DX: I10 Essential (primary) hypertension (principal); E03.9 Hypothyroidism, unspecified; R53.83 Other fatigue; Z12.5 Encounter for screening for malignant neoplasm of prostate; Z79.899 Other long term (current) drug therapy
CPT/HCPCS: 36415; 80053; 80061; 83036; 84403; 84443; 85027; G0103

== ENCOUNTER 2024-08-01 12:11 | Day surgery (SDC) | payer MEDICARE, BC ==
[~2024-08-01] VITALS: Ht 172.7 cm; Wt 95.1 kg
[~2024-08-01 12:11] MED LIST changes: +NS 250 ML IV ONE
[2024-08-01] MEDS ORDERED: LIDOCAINE 2% 100MG/5ML SDV (FOR ANES.) As Ordered ONE (13:24)
[2024-08-01] MEDS ORDERED: propofoL 200 MG/20 ML VIAL As Ordered ONE (13:24)
[2024-08-01 13:50] VITALS: TEMP 97.9
[2024-08-01 14:10] VITALS: BP 113/70; O2SAT 94
== END 2024-08-01 14:10 | disposition home or self-care (01) ==
LOC: M OPP 12:11
PROVIDERS: ATTEND Internal Medicine Gastroenterology
DX: Z12.11 Encounter for screening for malignant neoplasm of colon (principal); K64.0 First degree hemorrhoids; K57.30 Diverticulosis of large intestine without perforation or abscess without bleeding; Z86.0100 Personal history of colon polyps, unspecified; Z85.46 Personal history of malignant neoplasm of prostate; I10 Essential (primary) hypertension; G47.30 Sleep apnea, unspecified; Z79.899 Other long term (current) drug therapy; Z79.82 Long term (current) use of aspirin

== ENCOUNTER → 2024-12-06 | Outpatient (REF) | payer MEDICARE, BC ==
[~2024-12-06] MED LIST changes: -NS 250 ML IV ONE
[2024-12-06 18:46] LABS: HEMATOCRIT 46.2 % (42.0-52.0); HEMOGLOBIN 15.7 g/dl (13.5-17.5); MEAN CORPUSCULAR HEMOGLOBIN 30.5 pg (27.0-33.0); MEAN CORPUSCULAR VOLUME 89.7 fl (80.0-96.0); PLATELET COUNT, AUTOMATED 263 10^3/uL (150-450); RED BLOOD COUNT 5.15 10^6/uL (4.30-6.10); WHITE BLOOD COUNT 5.9 10^3/uL (4.0-10.0)
[2024-12-06 19:08] LABS: ALBUMIN 3.7 G/DL (3.2-5.2); ALKALINE PHOSPHATASE 48 U/L (40-129); ALT/SGPT 64 U/L (7.0-40); AST/SGOT 37 U/L (<34); BILIRUBIN,TOTAL 0.9 MG/DL (0.3-1.2); BLOOD UREA NITROGEN 19 MG/DL (9-23); CALCIUM LEVEL 9.8 MG/DL (8.3-10.6); CARBON DIOXIDE LEVEL 26 MMOL/L (20-31); CHLORIDE LEVEL 105 MMOL/L (98-107); CHOLESTEROL LEVEL 169 MG/DL (<200); CHOLESTEROL RISK RATIO 4.04 (<5); CREATININE FOR GFR 0.82 MG/DL (0.70-1.30); GLOMERULAR FILTRATION RATE > 60.0 (>42); GLUCOSE, FASTING 101 MG/DL (74-106); HDL CHOLESTEROL 41.8 MG/DL (>40); LDL CHOLESTEROL 104.2 MG/DL (<100); NON-HDL-C 127.2 MG/DL; POTASSIUM SERUM 4.3 MMOL/L (3.5-5.1); SODIUM LEVEL 141 MMOL/L (136-145); TOTAL PROTEIN 7.1 G/DL (5.7-8.2); TRIGLYCERIDES LEVEL 115 MG/DL (<150)
[2024-12-06 19:10] LABS: TOTAL 25(OH) VITAMIN D 37.6 NG/ML (20.0-100.0)
[2024-12-06 19:19] LABS: HEMOGLOBIN A1c 5.8 % (4.0-6.0)
== END ==
LOC: M LABDRAWC 17:49 → M LAB REF 17:49
PROVIDERS: ATTEND Family Medicine
DX: I10 Essential (primary) hypertension (principal); R53.83 Other fatigue; E03.9 Hypothyroidism, unspecified; Z79.899 Other long term (current) drug therapy

== ENCOUNTER → 2025-08-28 | Outpatient (REF) | payer MEDICARE, BC ==
[2025-08-28 18:03] LABS: PLATELET COUNT, AUTOMATED 291 10^3/uL (150-450)
[2025-08-28 18:05] LABS: CALCIUM LEVEL 9.7 MG/DL (8.3-10.6); CARBON DIOXIDE LEVEL 31 MMOL/L (20-31); CHLORIDE LEVEL 105 MMOL/L (98-107); CHOLESTEROL LEVEL 204 MG/DL (<200); CHOLESTEROL RISK RATIO 4.42 (<5); CREATININE FOR GFR 0.77 MG/DL (0.70-1.30); GLOMERULAR FILTRATION RATE > 90.0 (>42); LDL CHOLESTEROL 131.5 MG/DL (<100); NON-HDL-C 157.9 MG/DL; POTASSIUM SERUM 4.0 MMOL/L (3.5-5.1); SODIUM LEVEL 142 MMOL/L (136-145); TRIGLYCERIDES LEVEL 132 MG/DL (<150)
[2025-08-28 18:22] LABS: ESTIMATED AVERAGE GLUCOSE 120.0 MG/DL (60-110)
== END ==
LOC: M SFHCCLAY 11:28
PROVIDERS: ATTEND Student in an Organized Health Care Education/Training Program
DX: I10 Essential (primary) hypertension (principal); Z79.899 Other long term (current) drug therapy